=== PATIENT | male | born 1955 | race Caucasian/White ===

== ENCOUNTER 2017-03-19 21:52 | Inpatient (IN) | payer BC ==
[2017-03-19] MEDS ORDERED: cefTRIAXone 1 GM in Sodium Chloride 0.9% 50 ML IV ONE (22:10)
[2017-03-19 22:15] LABS: pH 7.48 (7.35-7.45)
[2017-03-19 22:16] LABS: ABG SOURCE Arterial; BE(B) 4.6 mEq/L (-3.0-3.0); HCO3 28.1 mEq/L (20.0-26.0)
[2017-03-19 22:17] LABS: ALLEN TEST YES; FIO2 21
--- NOTE | 2017-03-19 22:52 | ED Physician Chart ---
Chief Complaint/HPI - Patient Information Date Seen:: 03/19/17 Time Seen:: 22:13 Chief Complaint:: POSSIBLE SEIZURE History of Present Illness:: THIS IS A 62 YO MALE BIB EMS FROM A [facility] FOR AN EVALUATION OF HIM HAVING A SEIZURE. 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 THE PATIENT HAS CONGESTED LUNGS AND SWOLLEN LOWER EXTREMITIES. HE HAS A HISTORY OF ATHEROSCLEROSIS,HYPERTENSION AND VASCULAR DISEASE. Allergies:: Allergies Allergy/AdvReac Type Severity Reaction Status Date / Time No Known Allergies Allergy Verified 03/19/17 22:05 Vitals:: Vital Signs - 8 hr 03/19/17 22:05 Temp 97.1 F HR 117 RR 22 BP 152/72 O2 Sat % 92 Historian:: Patient, Medical Records Review:: Nurse's Note Reviewed Review of Systems - Review of Systems General/Constitutional: No fever, No chills, No weight loss, No weakness, No diaphoresis, No edema, No loss of appetite Skin: No skin lesions, No rash, No bruising, Other (THIS IS PATIENT IS UNABLE TO GIVE AN ACCURATE REVIEW OF SYSTEMS.) Head: No headache, No light-headedness Eyes: No loss of vision, No pain, No diplopia ENT: No earache, No nasal drainage, No sore throat, No tinnitus Neck: No neck pain, No swelling, No thyromegaly, No stiffness, No mass noted Cardio Vascular: No chest pain, No palpitations, No PND, No orthopnea, No edema Pulmonary: No SOB, No cough, No sputum, No wheezing GI: No nausea, No vomiting, No diarrhea, No pain, No melena, No hematochezia, No constipation, No hematemesis G/U: No dysuria, No frequency, No hematuria Musculoskeletal: No bone or joint pain, No back pain, No muscle pain Endocrine: No polyuria, No polydipsia Psychiatric: No prior psych history, No depression, No anxiety, No suicidal ideation Hematopoietic: No bruising, No lymphadenopathy Allergic/Immuno: No urticaria, No angioedema Neurological: No syncope, No focal symptoms, No weakness, No paresthesia, No headache, No seizure, No dizziness, No confusion, No vertigo Past Medical History - Past Medical History Obtainable: Yes Past Medical History: HTN, CAD, Dyslipidemia, Dementia Family History: None Social History: Smoker, Alcohol, No Alcohol, No Drug Use, Single, Care Facility Surgical History: None Psychiatricy History: None Medication: Reviewed Family Medical History - Family Member Mother History Unknown: Yes Physical Exam - Physical Examination General/Constitutional: Awake, Well-developed, well-nourished, Alert, No distress, GCS 15, Non-toxic appearing, Ambulatory Other Gen/Cons comments:: LETHARGIC AND COOPERATIVE BUT VERY PALE AND WEAK. Head: Atraumatic Eyes: Lids, conjuctiva normal, PERRL, EOMI Skin: Nl inspection, No rash, No skin lesions, No ecchymosis, Well hydrated, No lymphadenopathy ENMT: External ears, nose nl, Nasal exam nl, Lips, teeth, gums nl Neck: Nontender, Full ROM w/o pain, No JVD, No nuchal rigidity, No bruit, No mass, No stridor Respiratory: Nl effort/Exclusion, Clear to Auscultation, No Wheeze/Rhonchi/Rales Cardio Vascular: RRR, No murmur, gallop, rubs, NL S1 S2 GI: No tenderness/rebounding/guarding, No organomegaly, No hernia, Normal BS's, Nondistended, No mass/bruits, No McBurney tenderness : No CVA tenderness Extremities: No tenderness or effusion, Full ROM, No edema, Normal digits & nails Other Extremities comments:: THERE IS A LEFT AKA AMPUTATION WITH EDEMA AROUND THE STUMP. THE RIGHT LOWER EXTREMITY IS SWOLLEN BUT NOT TENDER. Neuro/Psych: Alert/oriented, DTR's symmetric, Normal sensory exam, Normal motor strength, Judgement/insight normal, Mood normal, Normal gait, No focal deficits Misc: normal gait, Normal back, No paraspinal tenderness Labs/Radiology/EKG Results - Lab Results Results: Laboratory Tests 03/19/17 21:47 Specimen Source Arterial Sample Site Right Radial pH 7.48 H pCO2 38.0 pO2 42.0 L* HCO3 28.1 H Base Excess 4.6 H O2 Saturation 82.0 L Tato Test YES Vent Rate NA Inspired O2 21 Tidal Volume NA PEEP NA Pressure (ins/psv/peep) NA Critical Value MMAGANA - EKG Interpretations EKG Time:: 22:29 Rate & Rhythm: RATE =111, SINUS Bohannon: RIGHT AXIS Assessment - Assessment General Assessment: THIS PATIENT WAS HYPOXIC, ANEMIC WITH ELEVATED WHITE COUNT AND MILDLY DEHYDRATED. THE PATIENT HAS EDEMA OF HIS LOWER EXTREMITIES FROM CHF. ED Septic Shock - . Is Septic Shock (SBP<90, OR Lactate>4 mmol\L) present?: No - <6hrs of presentation: Vital Signs: Vital Signs - 8 hr 03/19/17 22:05 Temp 97.1 F HR 117 RR 22 BP 152/72 O2 Sat % 92 Reassessment (Disposition) - Reassessment Reassessment Condition:: Improved - Diagnosis Diagnosis:: HYPOXEMIA ANEMIA CHF ELEVATED WHITE COUNT. - Patient Disposition Discharge/Transfer:: Acute Care w/in this hosp Admitting Medical Physician:: Dasha Mckeon Condition at Disposition:: Improved ED Discharge Plan - Patient Disposition Admit/Discharge/Transfer: Acute Care w/in this hosp Condition at Disposition: Improved
[2017-03-19] MEDS ORDERED: Sodium Chloride 0.9% 1,000 ML IV ONE (23:12)
[2017-03-19 23:15] LABS: % BASOPHILS 0.7 % (0.0-2.0); % EOSINOPHILS 1.1 % (0.0-5.0); % MONOCYTES 5.7 % (2.0-10.0); % NEUTROPHILS 85.5 % (40.0-80.0); HEMATOCRIT 27.6 % (39.0-49.0); HEMOGLOBIN 9.3 gm/dL (13.2-17.3); MEAN CELL VOLUME 84.8 fl (80-99); MEAN CORPUSCULAR HEMOGLOBIN 28.6 pg (26.0-30.0); MEAN CORPUSCULAR HGB CONC 33.7 pg (28.0-36.0); MEAN PLATELET VOLUME 7.1 fl; NEUTROPHILE ABSOLUTE 13.6 Th/cmm (1.8-8.0); PLATELET COUNT 439 Th/cmm (150-400); RED BLOOD COUNT 3.25 Mil/cmm (4.30-5.70); RED CELL DISTRIBUTION WIDTH 16.1 % (11.5-20.0)
[2017-03-19 23:23] LABS: WHITE BLOOD COUNT 15.9 Th/cmm (4.8-10.8)
[2017-03-19 23:26] LABS: INR 1.06 (0.5-1.4)
[2017-03-19 23:32] LABS: ALB/GLOB RATIO 0.6 (1.0-1.8); ALKALINE PHOSPHATASE 117 U/L (34-104); BILIRUBIN,TOTAL 0.3 mg/dL (0.3-1.0); BUN - UREA NITROGEN 9 mg/dL (7-25); CALCIUM SERUM 8.2 mg/dL (8.6-10.3); CARBON DIOXIDE 24.5 mEq/L (21.0-31.0); CHLORIDE 96 mEq/L (98-107); CREATININE - SERUM 0.5 mg/dL (0.7-1.3); GLUCOSE 122 mg/dL (70-105); POTASSIUM SERUM 3.5 mEq/L (3.5-5.1); SGOT 33 U/L (13-39); SGPT/ALT 21 U/L (7-52); SODIUM SERUM 128 mEq/L (136-145)
[2017-03-19 23:33] LABS: CHOLESTEROL 100 mg/dL (<200); TRIGLYCERIDES 82 mg/dL (<150)
[2017-03-20] MEDS ORDERED: Albuterol/Ipratropium Neb 3 ML AERS HHN PRN (00:54)
[2017-03-20] MEDS ORDERED: MAGNESIUM OXIDE 400 MG PO PRN (01:05)
[2017-03-20] MEDS: Albuterol/Ipratropium Neb 3 ML AERS HHN SCH ×4 (01:50→18:35)
[2017-03-20] MEDS ORDERED: Piperacillin Sodium/Tazobact 3.375 gm Vial IV ONE (02:29)
[2017-03-20] MEDS: D5-0.9NS w/KCL 20mEq 1,000 ML IV SCH ×2 (02:43→18:05)
[2017-03-20] MEDS: Hydrocodone/APAP 10 mg/325 mg Tab PO PRN ×4 (02:44→20:17)
--- NOTE | 2017-03-20 03:20 | Admit Criteria Form ---
Admit Criteria Forms - Admit Criteria Diagnosis: PULMONARY DISEASE GR Clinical Indications for Admission to Inpatient Care ( Place 'X' for any and all applicable criteria): Hospital admission is needed for appropriate care of the patient because of 1 or more of the following(1)(2): [ ]I. Impending or actual respiratory arrest. See Respiratory Failure GRG guideline for severe respiratory disease and long-term mechanical ventilation patients. (3)(4) (5) [ ]II. Severe airflow or ventilation abnormalities (not responsive to emergency and observation care treatment as appropriate) as indicated by 1 or more of the following (6)(7)(8)(9) : [ ]a) PCO2 greater than 42 mm Hg (5.6 kPa) and pH less than 7.35 (new) [ ]b) Documented PCO2 increased more than 5 mm Hg (0.7 kPa) from disease baseline [ ]c) Airflow measurements[A] less than 60% of previous best or predicted (eg, peak expiratory flow rate less than 300 L/min) despite intensive emergent treatment(B) [ ]d) Required respiratory treatments that are performable only in acute inpatient setting [X]III. Severe respiratory findings (not responsive to emergency and observation care treatment as appropriate) including 1 or more of the following(6)(9)(10): [X]a) Respiratory distress as indicated by ALL of the following(6)(11): [X]i) Patient with 1 or more of the following: [ ]1) Dyspnea (difficulty breathing) [X]2) Tachypnea [ ]3) Abnormal breathing pattern (eg, chest retractions) [ ]4) Other evidence of difficulty breathing [X]ii) Evidence of respiratory compromise indicated by 1 or more of the following: [X]1) Hypoxemia [ ]2) Altered mental status [ ]3) Other evidence of respiratory compromise (eg, pulmonary edema on chest x-ray) [ ]b) Stridor [ ]c) Gross hemoptysis(12) [ ]d) Acute cyanosis [ ]IV. Chronic lung disease with severe deterioration (not responsive to emergency and observation care treatment as appropriate) as indicated by 1 or more of the following(7) (13): [ ]a) SaO2 5% below baseline in patient with chronic hypoxemia [ ]b) New requirement for supplemental oxygen to keep SaO2 at baseline or acceptable level [ ]c) Required supplemental oxygen performable only in acute inpatient setting [ ]d) Severe airflow or ventilation abnormalities [ ]e) Previouslymobile patient unable to walk between rooms [ ]f) Inability to eat or sleep due to dyspnea [ ]g) Altered mental status that is severe or persistent [ ]V. Empyema or lung abscess(14)(15) [ ]Vl. Severe atelectasis or lung collapse(16)(17) [ ]Arpita. Tuberculosis requiring inpatient treatment as indicated by 1 or more of the following(18)(19)(20)(21): [ ]a) Diagnosis suspected (eg, symptomatic patient from endemic area or in high-risk population, with abnormal chest imaging) and cannot be ruled out within observation care timeframe (ie, sputum analysis, nucleic acid amplification techniques not rapidly available or not diagnostic) [ ]b) Severely symptomatic patient (eg, Hypoxemia, Hemodynamic instability, Tachypnea) [ ]c) Flrcj-nhyn-hodomsyyp infection suspected in newly diagnosed patient (eg, treatment regimen may require near-term adjustment) [ ]d) Newly diagnosed patient at high-risk of short-term deterioration (eg, HIV positive, frail, immunocompromised, chronic lung disease) [ ]e) High infectivity suspected (eg, laryngeal disease, cavitary pulmonary lesions, ongoing positivity of sputum) and 1 or more of the following: [ ]i) Unexposed household contacts at high risk (eg, immunocompromised, elderly, infants, chronic lung disease) [ ]ii) Patient unable or unwilling to avoid exposing others (eg, significant psychiatric disease, substance abuse, developmental disability) [ ]f) Complication of tuberculosis requiring inpatient treatment (eg , constrictive pericarditis, tubercular meningitis) [ ]g) Hospitalization mandated by public health authority (eg, patient continually noncompliant with directly observed therapy) [ ]VIII. High-risk pulmonary infection as indicated by 1 or more of the following(22)(23)(24)(25): [ ]a) Temperature less than 95 degrees F (35 degrees C) or greater than 103.1 degrees F (39.5 degrees C) [ ]b) Hemodynamic instability [ ]c) Immunocompromised patient (eg, AIDS, post transplant, neutropenic)(26)(27) [ ]d) History of severe COPD(28) [ ]e) History of severely symptomatic congestive heart failure(29) [ ]f) Other high-risk comorbidity (eg, poorly controlled diabetes, cirrhosis, chronic renal insufficiency) [ ]g) Hypoxemia [ ]h) severe stridor (30) [ ]i) Outpatient, observation, or recovery facility therapy has failed, is not appropriate, or is not feasible. [ ]IX. Complications of tracheostomy that remains after emergency or observation level care(31)(32)(33)(34) [ ]X. Respiratory complications of organ transplant (eg, rejection, respiratory failure, respiratory infection)(27) [ ]XI. Severe pulmonary arterial hypertension or pulmonary vascular disease requiring inpatient care indicated by 1 or more of the following(35)(36)(37)(38): [ ]a) Initiation or change of vasodilators (IV, subcutaneous, or inhaled) or other vasoactive medications needed [ ]b) IV anticoagulation needed (eg, immediate anticoagulation necessary, alternatives not appropriate) [ ]c) Arterial or pulmonary artery catheter monitoring needed due to infusion or other treatment [ ]XII. Cystic fibrosis requiring inpatient care as indicated by 1 or more of the following(39)(40): [ ]a) Severe exacerbation that does not respond to intensified home therapy(41) [ ]b) Severe exacerbation with patient unable to perform prescribed treatments at home [ ]c) Pneumonia [ ]d) Pneumothorax(42) [ ]e) Atelectasis [ ]f) Hemoptysis(43) [ ]XIII. Bronchiectasis requiring inpatient care as indicated by 1 or more of the following(44)(45): [ ]a) Respiratory distress [ ]b) Severe exacerbation and outpatient or observation care therapy has failed, is not appropriate, or is not feasible. [ ]XIV. Sarcoidosis requiring inpatient care as indicated by 1 or more of the following(46)(47)(48): [ ]a) Respiratory distress [ ]b) Cardiac involvement with arrhythmia(49) [ ]c) Outpatient or observation care therapy has failed, is not appropriate, or is not feasible. [ ]XV. Intestitial lung disease requiring inpatient care as indicated by 1 or more of the following(50)(51): [ ]a) Respiratory distress [ ]b) Severe exacerbation and outpatient or observation care therapy has failed, is not appropriate, or is not feasible [ ]XVI. Allergic pneumonitis requiring inpatient care as indicated by 1 or more of the following(52): [ ]a) Respiratory distress [ ]b) Acute eosinophilic pneumonia [ ]c) Churg Jose A with cardiac involvement [ ]d) Outpatient or observation care therapy has failed, is not appropriate, or is not feasible [ ]XVIl. Severe right heart failure requiring inpatient care as indicated by 1 or more of the following(35)(53)(54): [ ]a) Respiratory distress [ ]b) Debilitating anasarca that remains after emergency or observation level care (eg, tissue [ ]c) breakdown with severe infection, inability to void due to edema) [C](41)(42)(43)(44) [ ]d) Hemodynamic instability [ ]e) Syncope [ ]f) Angina that requires inpatient care (eg, not treatable in emergency or observation level of care) [ ]g) Increasing organ failure (eg, liver congestion with significant and worsening or new elevation of transaminases) [ ]XVIll. Injury requiring inpatient care (medical) as indicated by 1 or more of the following(59)(60)(61) [ ]a) Significant inhalation injury (eg, smoke inhalation, other toxic inhalation)(62)(63)(64) [ ]b) Airway obstruction that remains or is unstable after emergency or observation level care(65)(66) [ ]c) Severe pain requiring acute inpatient management [ ]d) Lung contusion(67) [ ]e) Flail chest(68) [ ]f) Bronchial tree injury [ ]g) Air or fat emboli [ ]h) Other injury not treatable in emergency or observation level care (eg, hemothorax)(55) [ ]XlX. Pulmonary hemorrhage or significant hemoptysis(12)(43)(69) [ ]XXl. Complications of transplanted lung indicated by 1 or more of the following(70)(71) [ ]a) Acute graft rejection requiring inpatient management (eg, intravenous immunosuppression)(72)(73)(74) [ ]b) Failure of transplant lung as indicated by 1 or more of the following(75)(76): [ ]i) Anastomotic leak [ ]ii) Airway ischemia or necrosis [ ]iii) Airway fistula [ ]iv) Obstructing granulation tissue requiring intervention [ ]v) Bronchial stenosis or stricture requiring intervention [ ]vi) Tracheobronchomalacia requiring intervention [ ]vii) Severe airflow or ventilation abnormalities [ ]viii) Severe respiratory findings [ ]c) Infection requiring inpatient management (eg, Hemodynamic instability, need for intravenous antimicrobial treatment)(77)(78)(79)(80)(81)(82 [ ]d) Other complication of transplanted lung (eg, obliterative bronchiolitis, plastic bronchitis, thrombotic microangiopathy, constrictive pericarditis) requiring inpatient management(83)(84)(85)(86)(87) [ ]XXll. Inpatient palliative care needed.[D](88)(89)(90)(91) [ ]XXlll. Pulmonary Disease condition, symptom, or finding for which emergency and observation care have failed or are not considered appropriate. The original [facility] content created by [facility] [employer] (by [employer]) has been revised. The portions of the content which have been revised are identified through the use of italic text or in bold, and [facility] [employer] has neither reviewed nor approved the modified material. All other unmodified content is copyright [facility] [employer] (by [employer]). Please see references footnoted in the original [facility] [employer]by [employer] edition 2017 Admit Criteria Met?: Yes
[2017-03-20] MEDS: methylPREDNISolone SS 40 mg Vial IVP SCH ×3 (05:10→20:17)
[2017-03-20 06:00] LABS: HEMATOCRIT 30.1 % (39.0-49.0); HEMOGLOBIN 9.7 gm/dL (13.2-17.3); MEAN CELL VOLUME 85.4 fl (80-99); MEAN CORPUSCULAR HEMOGLOBIN 27.5 pg (26.0-30.0); MEAN CORPUSCULAR HGB CONC 32.1 pg (28.0-36.0); MEAN PLATELET VOLUME 7.2 fl; PLATELET COUNT 421 Th/cmm (150-400); RED BLOOD COUNT 3.52 Mil/cmm (4.30-5.70); RED CELL DISTRIBUTION WIDTH 15.9 % (11.5-20.0)
[2017-03-20 06:07] LABS: WHITE BLOOD COUNT 15.6 Th/cmm (4.8-10.8)
[2017-03-20 06:24] LABS: URINE BILIRUBIN NEGATIVE (NEGATIVE); URINE BLOOD NEGATIVE (NEGATIVE); URINE COLOR STRAW; URINE GLUCOSE (UA) NEGATIVE (NEGATIVE); URINE KETONE NEGATIVE (NEGATIVE)
[2017-03-20 06:25] LABS: URINE BACTERIA OCCASIONAL /hpf (NONE SEEN); URINE EPITHELIAL CELLS OCCASIONAL /lpf (FEW); URINE PROTEIN NEGATIVE (NEGATIVE); URINE RBC NONE SEEN /hpf (0-5); URINE UROBILINOGEN 0.2 E.U./dL (0.2 - 1.0); URINE WBC 0-2 /hpf (0-5)
[2017-03-20 06:26] LABS: ALB/GLOB RATIO 0.6 (1.0-1.8); ALKALINE PHOSPHATASE 125 U/L (34-104); ANION GAP 11.8 (7.0-16.0); BILIRUBIN,TOTAL 0.3 mg/dL (0.3-1.0); BUN - UREA NITROGEN 8 mg/dL (7-25); CALCIUM SERUM 8.5 mg/dL (8.6-10.3); CARBON DIOXIDE 25.9 mEq/L (21.0-31.0); CHLORIDE 96 mEq/L (98-107); CREATININE - SERUM 0.5 mg/dL (0.7-1.3); GLUCOSE 172 mg/dL (70-105); POTASSIUM SERUM 3.7 mEq/L (3.5-5.1); SGOT 38 U/L (13-39); SGPT/ALT 24 U/L (7-52); SODIUM SERUM 130 mEq/L (136-145)
[2017-03-20 06:30] LABS: AMPHETAMINE URINE NEGATIVE (NEGATIVE); BARBITURATES URINE NEGATIVE (NEGATIVE); METHADONE URINE NEGATIVE (NEGATIVE)
[2017-03-20 08:03] LABS: BAND NEUTROPHILE 2 % (0-10); NEUTROPHILS 93 % (40-80); PLATELET ESTIMATE ADEQUATE (NORMAL); TOTAL CELLS COUNTED 100
[2017-03-20] MEDS: Multivitamin w/ Minerals Tab PO SCH (08:29)
[2017-03-20] MEDS ORDERED: Non-Formulary Item 1 EA (Arginine/Ascorbate Sod/Vite Ac [Arginaid Powder] 1 EACH) PO SCH (09:00)
--- NOTE | 2017-03-20 09:49 | Diagnostic Imaging Report ---
Portable chest x-ray HISTORY: Shortness of breath The heart is enlarged. Atherosclerotic calcification seen in the aorta. No acute focal pulmonary processes. IMPRESSION: 1. No acute processes 2. Atherosclerotic vascular changes
--- NOTE | 2017-03-20 19:14 | History & Physical ---
ADMIT DATE: 03/20/2017 CHIEF COMPLAINT: Possible seizure. HISTORY OF PRESENT ILLNESS: A 62-year-old male presents apparently after what appeared to be a seizure activity. The patient was evaluated in Emergency Room. No evidence of seizures was noted. The patient, however, did have evidence of infection. He was also slightly hypoxemic. He was started on IV antibiotics and admitted for further treatment and care. The patient is seen in hospital bed. He is awake and alert. Now, he does not feel any shortness of breath and is comfortably sitting up in bed without any oxygen or shortness of breath. The patient denies any chest pain, shortness of breath. Denies any headache or visual disturbance, could not recall exact events that brought him to the hospital, but he is cognizant, unable to answer question properly. Denies any fever or chills, does have ongoing pain in his left leg, given recent amputation. PAST MEDICAL HISTORY: The patient has history of peripheral vascular disease. He had left above knee amputation about a week ago in [facility] by ____. The patient has been taking pain medications at home postop. He also has history of hypertension and anemia. MEDICATIONS: As per reconciliation. ALLERGIES: The patient has no known drug allergies. SOCIAL HISTORY: Denies tobacco, alcohol or illicit drug use. FAMILY HISTORY: Noncontributory. REVIEW OF SYSTEMS: IMMUNOLOGIC: No recurrent infection. CARDIOVASCULAR: The patient has history of hypertension, no known heart disease. GASTROINTESTINAL: No nausea, vomiting or diarrhea. ENDOCRINE: The patient has no diabetes. No thyroid disorder. NEUROLOGIC: No seizure or stroke. HEMATOLOGIC: No bleeding or clotting disorder. PHYSICAL EXAMINATION: GENERAL: The patient is awake and alert, in no acute distress. VITAL SIGNS: Temperature 97.1, pulse 85, respiration 19, blood pressure 141/62. HEENT: Pupils equally round, anicteric sclerae. NECK: Supple, no JVD, mass or bruit. LUNGS: Clear to auscultation. HEART: S1, S2 regular rate and rhythm. ABDOMEN: Soft, nontender, positive bowel sounds. EXTREMITIES: The patient has left above knee amputation with stump still with mariya in place. The patient has area of redness and maceration and some slight sanguinous discharge. Right leg shows 1+ edema with evidence of vascular insufficiency in the second toe and possible deep tissue injury to the right heel with evidence discoloration. NEUROLOGIC: The patient moves all extremities equally. He is alert and oriented. LABORATORY DATA: WBC is 15.6, hemoglobin 9.7. Platelets 421. Sodium is 130, potassium ____, creatinine 0.5, glucose 172, albumin is 2.5. IMPRESSION: 1.Left stump infection. 2.Status post left above-knee amputation. 3.Sepsis. 4.Severe protein malnutrition. 5.Peripheral vascular disease. 6.Anemia. 7.Hyponatremia. 8.Hypertension. PLAN: Admit to Med/Surg. Continue IV antibiotics and IV hydration. The patient's ____ contacted hospital regarding the need for transfer to contracted hospital. At this point, patient appears stable with normal vitals. He will require continued IV antibiotics pending further evaluation in new facility. JOB# [id number]
[2017-03-21] MEDS: Albuterol/Ipratropium Neb 3 ML AERS HHN SCH ×4 (00:49→18:40)
[2017-03-21] MEDS: D5-0.9NS w/KCL 20mEq 1,000 ML IV SCH ×2 (06:12→16:23)
[2017-03-21] MEDS: methylPREDNISolone SS 40 mg Vial IVP SCH ×2 (07:04→12:33)
[2017-03-21] MEDS: Multivitamin w/ Minerals Tab PO SCH (08:16)
[2017-03-21] MEDS ORDERED: cloNIDine 0.1 mg/24 hr Tdm TD SCH (09:00)
[2017-03-21] MEDS: Vancomycin HCl 1.5 GM in Sodium Chloride 0.9% 500 ML IV SCH ×2 (11:39→22:19)
--- NOTE | 2017-03-21 12:35 | Infectious Disease Prog Note ---
Infectious Disease Subjective - Review of Systems Service Date: 03/21/17 Subjective: pad, l aka ischemia rt foot cellulitis hpi pt schedule for transfer to [facility] ros no fevr o/e vs chest claer abd soft l aka ischemia plan vanco continue Infectious Disease Objective - Results Result Diagrams: 03/20/17 05:30 03/20/17 05:30 Recent Labs: Laboratory Last Values WBC 15.6 Th/cmm (4.8-10.8) H 03/20/17 05:30 RBC 3.52 Mil/cmm (4.30-5.70) L 03/20/17 05:30 Hgb 9.7 gm/dL (13.2-17.3) L 03/20/17 05:30 Hct 30.1 % (39.0-49.0) L 03/20/17 05:30 MCV 85.4 fl (80-99) 03/20/17 05:30 MCH 27.5 pg (26.0-30.0) 03/20/17 05:30 MCHC Differential 32.1 pg (28.0-36.0) 03/20/17 05:30 RDW 15.9 % (11.5-20.0) 03/20/17 05:30 Plt Count 421 Th/cmm (150-400) H 03/20/17 05:30 MPV 7.2 fl 03/20/17 05:30 Neutrophils % 85.5 % (40.0-80.0) H 03/19/17 22:49 Band Neutrophils % 2 % (0-10) 03/20/17 05:30 Lymphocytes % 7.0 % (20.0-50.0) L 03/19/17 22:49 Monocytes % 5.7 % (2.0-10.0) 03/19/17 22:49 Eosinophils % 1.1 % (0.0-5.0) 03/19/17 22:49 Basophils % 0.7 % (0.0-2.0) 03/19/17 22:49 Neutrophils (Manual) 93 % (40-80) H 03/20/17 05:30 Lymphocytes 4 % (20-50) L 03/20/17 05:30 Monocytes 1 % (2-10) L 03/20/17 05:30 Platelet Estimate ADEQUATE (NORMAL) 03/20/17 05:30 PT 11.0 SECONDS (9.5-11.5) 03/19/17 22:49 INR 1.06 (0.5-1.4) 03/19/17 22:49 PTT (Actin FS) 25.0 SECONDS (26.0-38.0) L 03/19/17 22:49 Specimen Source Arterial 03/19/17 21:47 Sample Site Right Radial 03/19/17 21:47 pH 7.48 (7.35-7.45) H 03/19/17 21:47 pCO2 38.0 mmHg (35.0-45.0) 03/19/17 21:47 pO2 42.0 mmHg (80.0-100.0) L* 03/19/17 21:47 HCO3 28.1 mEq/L (20.0-26.0) H 03/19/17 21:47 Base Excess 4.6 mEq/L (-3.0-3.0) H 03/19/17 21:47 O2 Saturation 82.0 % (92.0-100.0) L 03/19/17 21:47 Tato Test YES 03/19/17 21:47 Vent Rate NA 03/19/17 21:47 Inspired O2 21 03/19/17 21:47 Tidal Volume NA 03/19/17 21:47 PEEP NA 03/19/17 21:47 Pressure (ins/psv/peep) NA 03/19/17 21:47 Critical Value MMAGANA 03/19/17 21:47 Sodium 130 mEq/L (136-145) L 03/20/17 05:30 Potassium 3.7 mEq/L (3.5-5.1) 03/20/17 05:30 Chloride 96 mEq/L (98-107) L 03/20/17 05:30 Carbon Dioxide 25.9 mEq/L (21.0-31.0) 03/20/17 05:30 Anion Gap 11.8 (7.0-16.0) 03/20/17 05:30 BUN 8 mg/dL (7-25) 03/20/17 05:30 Creatinine 0.5 mg/dL (0.7-1.3) L 03/20/17 05:30 Est GFR ( Amer) > 60.0 ml/min (>90) 03/20/17 05:30 Est GFR (Non-Af Amer) > 60.0 ml/min 03/20/17 05:30 BUN/Creatinine Ratio 16.0 03/20/17 05:30 Glucose 172 mg/dL (70-105) H 03/20/17 05:30 Whole Bld Lactic Acid 1.35 mmol/L (0.60-1.99) 03/19/17 22:49 Calcium 8.5 mg/dL (8.6-10.3) L 03/20/17 05:30 Total Bilirubin 0.3 mg/dL (0.3-1.0) 03/20/17 05:30 AST 38 U/L (13-39) 03/20/17 05:30 ALT 24 U/L (7-52) 03/20/17 05:30 Alkaline Phosphatase 125 U/L (34-104) H 03/20/17 05:30 Troponin I 0.05 ng/mL (0.01-0.05) 03/19/17 22:49 Total Protein 6.6 gm/dL (6.0-8.3) 03/20/17 05:30 Albumin 2.5 gm/dL (4.2-5.5) L 03/20/17 05:30 Globulin 4.1 gm/dL 03/20/17 05:30 Albumin/Globulin Ratio 0.6 (1.0-1.8) L 03/20/17 05:30 Triglycerides 82 mg/dL (<150) 03/19/17 22:49 Cholesterol 100 mg/dL (<200) 03/19/17 22:49 LDL Cholesterol Direct 70 mg/dL (75-193) L 03/19/17 22:49 HDL Cholesterol 26 mg/dL (23-92) 03/19/17 22:49 TSH 1.94 uIU/ml (0.34-5.60) 03/19/17 22:49 Urine Source CLEAN C 03/20/17 05:30 Urine Color STRAW 03/20/17 05:30 Urine Clarity CLEAR (CLEAR) 03/20/17 05:30 Urine pH 7.0 03/20/17 05:30 Ur Specific [place] 1.010 (1.005-1.030) 03/20/17 05:30 Urine Protein NEGATIVE mg/dL (NEGATIVE) 03/20/17 05:30 Urine Glucose (UA) NEGATIVE mg/dL (NEGATIVE) 03/20/17 05:30 Urine Ketones NEGATIVE mg/dL (NEGATIVE) 03/20/17 05:30 Urine Blood NEGATIVE (NEGATIVE) 03/20/17 05:30 Urine Nitrate NEGATIVE (NEGATIVE) 03/20/17 05:30 Urine Bilirubin NEGATIVE (NEGATIVE) 03/20/17 05:30 Urine Urobilinogen 0.2 E.U./dL (0.2 - 1.0) 03/20/17 05:30 Ur Leukocyte Esterase NEGATIVE (NEGATIVE) 03/20/17 05:30 Urine RBC NONE SEEN /hpf (0-5) 03/20/17 05:30 Urine WBC 0-2 /hpf (0-5) 03/20/17 05:30 Ur Epithelial Cells OCCASIONAL /lpf (FEW) 03/20/17 05:30 Urine Bacteria OCCASIONAL /hpf (NONE SEEN) 03/20/17 05:30 Vancomycin Trough 7.8 ug/mL (10-20) L 03/21/17 09:00 Urine Opiates Screen POSITIVE (NEGATIVE) H 03/20/17 05:30 Urine Methadone Screen NEGATIVE (NEGATIVE) 03/20/17 05:30 Ur Barbiturates Screen NEGATIVE (NEGATIVE) 03/20/17 05:30 Ur Tricyclics Screen NEGATIVE (NEGATIVE) 03/20/17 05:30 Ur Phencyclidine Scrn NEGATIVE (NEGATIVE) 03/20/17 05:30 Amphetamines Screen NEGATIVE (NEGATIVE) 03/20/17 05:30 U Methamphetamines Scrn NEGATIVE (NEGATIVE) 03/20/17 05:30 U Benzodiazepines Scrn POSITIVE (NEGATIVE) H 03/20/17 05:30 U Cocaine Metab Screen NEGATIVE (NEGATIVE) 03/20/17 05:30 U Cannabinoids Screen NEGATIVE (NEGATIVE) 03/20/17 05:30 RPR NONREACTIVE (NONREACTIVE) 03/19/17 22:49 - Physical Exam Vitals and I&O: Vital Signs Temp 97.4 F 03/21/17 11:46 Pulse 78 03/21/17 12:28 Resp 14 03/21/17 12:24 BP 144/62 03/21/17 12:28 Pulse Ox 99 03/21/17 12:24 Intake & Output 03/20/17 03/21/17 03/21/17 18:59 06:59 18:59 Intake Total 9994.313 9029 Output Total 650 Balance 7842.392 6000 Weight (lbs) 65.317 kg Intake: Intake, IV Amount 0668.483 5249 D5-0.9NS w/KCL 20mEq 1, 314.183 3984 000 ml @ 100 mls/hr IV . Q10H [facility] Rx#:[id number] Piperacillin Sodium/ 100 100 Tazobact 3.375 gm In Sodium Chloride 0.9% 50 ml @ 100 mls/hr IV Q6HR [facility] Rx#:[id number] Vancomycin HCl 1.25 gm In 250 250 Sodium Chloride 0.9% 250 ml @ 165 mls/hr IV Q12H [facility] Rx#:[id number] Oral 1250 Output: Urine 650 Other: # Voids 1 Stool Characteristics Soft Brown Active Medications: Current Medications Acetaminophen (Tylenol) 650 mg PO Q4H PRN PRN Reason: temp above 100 Stop: 05/19/17 00:59 Acetaminophen/Hydrocodone Bitart ([place] 10 Mg/325 Mg) 1 tab PO Q4H PRN PRN Reason: Pain (Moderate) Stop: 05/19/17 01:04 Last Admin: 03/20/17 20:17 Dose: 1 tab Albuterol/Ipratropium (Duoneb Neb) 3 ml HHN Q6HRT [facility] Stop: 05/19/17 00:59 Last Admin: 03/21/17 12:06 Dose: 3 ml Albuterol/Ipratropium (Duoneb Neb) 3 ml HHN Q2H PRN PRN Reason: Wheezing Stop: 05/19/17 00:53 Ascorbic Acid (Vitamin C) 250 mg PO DAILY [facility] Stop: 05/19/17 08:59 Last Admin: 03/21/17 08:14 Dose: 250 mg Cilostazol (Pletal) 100 mg PO BID [facility] Stop: 05/19/17 08:59 Last Admin: 03/21/17 08:16 Dose: 100 mg Clonidine HCl (Awahkxqv-Nmf-6) 1 patch TD Aguilera@0900 [facility] Stop: 05/20/17 08:59 Last Admin: 03/21/17 12:28 Dose: 1 patch Clonidine HCl (Catapres) 0.1 mg PO Q6HR PRN PRN Reason: SBP ABOVE 160 Stop: 05/19/17 01:04 Docusate Sodium (Colace) 250 mg PO BID [facility] Stop: 05/19/17 08:59 Last Admin: 03/21/17 09:00 Dose: Not Given Potassium Chloride/Dextrose/Sod Cl (D5-0.9ns W/Kcl 20meq) 1,000 mls @ 100 mls/ hr IV .Q10H [facility] Stop: 05/19/17 00:56 Last Admin: 03/21/17 06:12 Dose: 100 mls/hr Piperacillin Sod/Tazobactam (Sod 3.375 gm/ Sodium Chloride) 50 mls @ 100 mls/ hr IV Q6HR [facility] Stop: 05/19/17 05:59 Last Infusion: 03/21/17 05:13 Dose: Infused Vancomycin HCl 1.5 gm/ Sodium (Chloride) 500 mls @ 250 mls/hr IV Q12H [facility] Stop: 05/20/17 10:59 Last Admin: 03/21/17 11:39 Dose: 250 mls/hr Magnesium Oxide (Mag-Oxide) 400 mg PO BID [facility] Stop: 05/20/17 08:59 Methylprednisolone Sodium Succinate (Solu-Medrol) 60 mg IVP Q8HR [facility] Stop: 05/19/17 04:59 Last Admin: 03/21/17 07:04 Dose: 60 mg Miscellaneous (Vancomycin Iv Per Pharmacy) 1 ea MC PRN [facility] Stop: 05/19/17 01:14 Morphine Sulfate (Ms-Contin) 15 mg PO BID [facility] Stop: 05/19/17 08:59 Last Admin: 03/21/17 08:16 Dose: 15 mg Ondansetron HCl (Zofran) 4 mg IV Q6H PRN PRN Reason: Nausea / Vomiting Stop: 05/19/17 00:53 Zinc Sulfate (Zinc Sulfate) 220 mg PO DAILY [facility] Stop: 05/19/17 08:59 Last Admin: 03/21/17 08:15 Dose: 220 mg Zolpidem Tartrate (Ambien) 5 mg PO HS PRN PRN Reason: Insomnia Stop: 05/20/17 07:56 Nutritional Asmnt/Malnutr-PDOC - Dietary Evaluation Malnutrition Findings (Please click <Entered> for more info): Nutritional Asmnt/Malnutrition Start: 03/20/17 10: 10 Text: Status: Complete Freq: Document 03/20/17 10:10 CLAUDINEGOLDIE (Rec: 03/20/17 10:17 JENNIFER ROMY- [id number]) Nutritional Asmnt/Malnutrition Patient General Information Diagnosis PNA, hypoxemia Pertinent Medical Hx/Surgical Hx atherosclerosis, HTN, vascular dz, CAD, dyslipidemia, dementia Subjective Information Pt sitting up in bed reprots no recent weight loss and NKFA . Pt states he has no nutrition concerns at this time. Current Diet Order/ Nutrition Support Regular Patient / S.O Not Indicated Pertinent Medications vit C, coalce, solu-medrol, ondansetron, D5NS with 20mEq KCl bolus, zinc sulfate Pertinent Labs 03/20/17: Na 130, K 3.7, Cl 96, CO2 25.9, BUN 8, Cr 0.5, Ca 8 .5, glucsoe 122 Nutritional Hx/Data Height 1.78 m Height (Calculated Centimeters) 177.8 Current Weight (lbs) 65.317 kg Weight (Calculated Kilograms) 65.3 Weight (Calculated Grams) 73531.3 Recent Weight Change No Weight Status Approriate GI Symptoms GI Symptoms None Food Allergies No Cultural/Ethnic/[employer] Belief Pt denies Usual diet at home Pt states he follows a regular diet with no restrictions Skin Integrity/Comment: helio score 13, R ankle pressure area, R heel UTI Current %PO Good (75-100%) Estimated Nutritional Goals BEE in Kcals: Using Current wt Calories/Kcals/Kg 25-30kcals/kg Kcals Calculated 1625-1950kcals/day Protein: Using Current wt Protein g/k-1.2g/kg Protein Calculated 65-78g/day Fluid: ml 1625-1950ml/day Nutritional Problem 1. Problem Problem No nutrition diagnosis at this time Intervention/Recommendation Comments Recommend 2g Na diet Expected Outcomes/Goals Expected Outcomes/Goals PO intake >75%
--- NOTE | 2017-03-21 13:40 | History & Physical ---
INFECTIOUS DISEADSE CONSULT ADMIT DATE: 03/20/2017 PRIMARY CARE PHYSICIAN: Dr. Saavedra and Dr. Mckeon. HISTORY OF PRESENT ILLNESS: A 62-year-old male, who was brought to the Emergency with complaint of left foot cellulitis and the patient was found to have peripheral vascular disease and admitted to the hospital. Infectious consultation was called for further treatment. The patient cultures ordered. Discussed with the staff, antibiotic started. PAST MEDICAL HISTORY: Atherosclerotic heart disease, hypertension, peripheral vascular disease, seizures also past history of Alzheimer's. FAMILY HISTORY: Negative. REVIEW OF SYSTEMS: A 14-point review of systems negative except above. PHYSICAL EXAMINATION: GENERAL: Alert, awake, not in distress. HEENT: Mild pallor, no icterus or plaque. NECK: Supple. LUNGS: Breath sounds bilateral. CARDIOVASCULAR: S1, S2. ABDOMEN: Soft, bowel sounds present. SKIN: Left AKA stump site, discoloration and edema right foot to cellulitis. LYMPHATIC: No thyroid. No cervical lymph nodes. EXTREMITIES: . Decrease pulses, lower extremities. LABORATORY DATA: White count is 15,000, hemoglobin is 10 gram, platelets 421, creatinine is 0.5. UA negative, opiates in the urine positive as well as benzodiazepines. RPR negative. DIAGNOSES: 1. Left above-knee amputation, discoloration, needs vascular surgery and transfer to [facility]. 2. Foot cellulitis. The patient started on vancomycin and Zosyn. 3. Nausea. Zofran. 4. Pain control with morphine. 5. Constipation. Colace. 6. Coronary artery disease. Pletal. Thank you, Dr. Saavedra and Dr. Mckeon for this consultation. JOB# [id number] [facility]
[2017-03-21] MEDS ORDERED: methylPREDNISolone SS 40 mg Vial IVP SCH (16:04)
[2017-03-21] MEDS: Hydrocodone/APAP 10 mg/325 mg Tab PO PRN (20:08)
[2017-03-22] MEDS: Albuterol/Ipratropium Neb 3 ML AERS HHN SCH (00:44)
[2017-03-22] MEDS: Hydrocodone/APAP 10 mg/325 mg Tab PO PRN (01:16)
[2017-03-22] MEDS ORDERED: Enoxaparin 30 mg/0.3 mL 0.3mL Syr SUBQ SCH (09:00)
== END 2017-03-22 03:20 | disposition short-term general hospital (02) | DRG 871 ==
LOC: ER 21:52 → TELE 03-20 00:38
PROVIDERS: ADMIT Internal Medicine; ATTEND Internal Medicine
DX: A41.9 Sepsis, unspecified organism (principal); E43 Unspecified severe protein-calorie malnutrition; Z89.612 Acquired absence of left leg above knee; L03.116 Cellulitis of left lower limb; E87.1 Hypo-osmolality and hyponatremia; I10 Essential (primary) hypertension; I25.10 Atherosclerotic heart disease of native coronary artery without angina pectoris; I73.9 Peripheral vascular disease, unspecified; D64.9 Anemia, unspecified; Z68.20 Body mass index [BMI] 20.0-20.9, adult
CPT/HCPCS: 36415-UA; 36600-90; 71010-TC; 80053-TC; 80061-TC; 80202-TC; 80307; 81001-TC; 82803-TC; 83605; 84443-TC; 84484-TC; 85007-TC; 85025-TC; 85027-TC; 85610-TC; 85730-TC; 86592-TC; 87070-90; 93005; 94760; J0696; J2543; J2920; J2930; J3370; J7030; J7040; J7042; Z7610